=== PATIENT | male | born 1975 | race Two or more races ===

== ENCOUNTER 2021-06-28 19:23 | Emergency (ER) | payer OTHER ==
[~2021-06-28] VITALS: Ht 190.5 cm; Wt 111.1 kg
== END 2021-06-28 21:57 | disposition home or self-care (01) ==
LOC: ER 19:23
DX: S91.104A Unspecified open wound of right lesser toe(s) without damage to nail, initial encounter (principal); W25.XXXA Contact with sharp glass, initial encounter; Y92.29 Other specified public building as the place of occurrence of the external cause